=== PATIENT | male | born 1965 | race Caucasian/White ===

== ENCOUNTER 2018-07-05 23:18 | Emergency (ER) | payer BC ==
[~2018-07-05] VITALS: Ht 172.7 cm; Wt 90.7 kg
[~2018-07-05 23:18] MED LIST: ASPI-484 PO; ASPI-655 PO; ATOR20TA PO; LANS15CA66 PO; METO-237 PO; Metoprolol Tartrate PO; NICO-449 TP; NITR0.4T26 SL; PRAS10TA4 PO; TICA90TA PO
[2018-07-05 23:30] VITALS: BP 134/85
[2018-07-05] MEDS ORDERED: TORADOL IV STA (23:30)
[2018-07-05] MEDS ORDERED: ZOFRAN IV STA (23:30)
[2018-07-05] MEDS ORDERED: NS 1000ML 1,000 ML STA (23:30)
--- NOTE | 2018-07-05 23:35 | ER.PDOC ---
General Chief Complaint: Flank Pain Stated Complaint: L SIDE & ABD PAIN Time seen by MD: 23:32 Source: patient Exam Limitations: no limitations History of Present Illness Initial Comments 52 year old white male with acute onset of severe left flank pain that radiates to the groin with nausea. Afebrile. Timing/Duration: 1 hour Severity/Quality: severe Radiation: groin Associated Symptoms: nausea/vomiting Exacerbated by: nothing Allergies: Coded Allergies: No Known Allergies (Unverified , 12/10/17) Home Meds Active Scripts Metoprolol Succinate (METOPROLOL SUCCINATE) 50 Mg Tab.er.24h, 1 TAB PO DAILY, # 90 TAB 1 Refill Prov:LIANNE ORTEGA MD 12/12/17 Ticagrelor (BRILINTA) 90 Mg Tablet, 90 MG PO BID for PCI, #180 TABLET 2 Refills Prov:AGUSTINA CALL TOW BAR DRIVER 02/21/17 Atorvastatin 20MG (LIPITOR 20MG) 20 Mg Tablet, 40 MG PO HS, #30 TABLET Prov:MARILYN ORTIZ MD 03/17/15 Reported Medications Aspirin (ASPIR 81) 81 Mg Tablet.dr, 1 TAB PO DAILY, #30 TAB 5 Refills 12/10/17 Vital Signs First Vital Signs Date Time Temp Pulse Resp B/P (MAP) Pulse Ox O2 Delivery O2 Flow Rate FiO2 07/05/18 23:27 98.9 100 22 95 Room Air 98.9 07/05/18 23:30 134/85 (101) Last Vital Signs Date Time Temp Pulse Resp B/P (MAP) Pulse Ox O2 Delivery O2 Flow Rate FiO2 07/05/18 23:30 98.9 100 22 134/85 (101) 95 Room Air 98.9 Past Medical History Medical History: coronary artery disease Surgical History: cardiac cath Social History Smoking: less than 1 pack/day Alcohol Use: none Drug Use: none Constitutional: no symptoms reported EENTM: no symptoms reported Respiratory: no symptoms reported Cardiovascular: no symptoms reported Gastrointestinal: see HPI Genitourinary: see HPI Musculoskeletal: no symptoms reported Skin: no symptoms reported Psychiatric/Neurological: no symptoms reported Endocrine: no symptoms reported Hematologic/Lymphatic: no symptoms reported Physical Exam General Appearance: No Apparent Distress, WD/WN HEENT: PERRL/EOMI, Normal ENT Inspection, TMs Normal, Pharynx Normal Neck: Non-Tender, Full Range of Motion, Supple, Normal Inspection Respiratory: chest non-tender, lungs clear, normal breath sounds, no respiratory distress, no accessory muscle use Cardiovascular: Normal Peripheral Pulses, Regular Rate, Rhythm, No Edema, No Gallop, No JVD, No Murmur Gastrointestinal: Normal Bowel Sounds, Non Tender, Soft Pelvic: Normal External Exam, Normal Adnexa, No Cerv. Motion Tender, No Masses Back: Normal Inspection, No CVA Tenderness, No Vertebral Tenderness Extremities: Normal Range of Motion, Non-Tender, Normal Inspection, No Pedal Edema, No Calf Tenderness, Normal Capillary Refill, Pelvis Stable Neurologic/Psychiatric: brand representative II-XII NML as Tested, No Motor/Sensory Deficits, Alert, Normal Mood/Affect, Oriented x 3 Skin: Normal Color, Warm/Dry Lymphatic: No Adenopathy Progress Progress Pain free on recheck Course Sepsis Screening Results: Posi: POSITIVE SEPSIS RISK Sepsis Qualifier/Stage: NO DEFINITE RISK Duration or Total Time Spent w: 15 Vitals & review Data Vital Sign - Last 24 Hours 07/05/18 07/05/18 07/05/18 23:27 23:27 23:30 Temp 98.9 98.9 98.9 98.9 98.9 98.9 Pulse 100 100 100 Resp 22 22 22 B/P (MAP) 134/85 (101) Pulse Ox 95 95 O2 Delivery Room Air Room Air Sepsis Infection Criteria Pres: None LEVEL 1 SEPSIS INFECTION CRITE: None/Not assessed LEVEL 2-SIRS (LIST ALL THAT AP: None/Not assessed Cardiovascular Evidence: Not Assessed or None Hematologic Evidence: None/Not assessed Hepatic Evidence: None/Not assessed Metabolic Evidence: None/Not assessed Neurological Evidence: None/Not assessed Respiratory Evidence: None/Not assessed Renal Evidence: None/Not assessed O2 Sat by Pulse Oximetry: 95 Departure Time of Disposition: 00:47 Disposition: 01 HOME, SELF-CARE Impression: Primary Impression: Ureteral stone Condition: Stable Referrals: LIANNE ORTEGA MD (PCP) PRIMARY CARE PROVIDER Comments Follow up PCP RTER prn Tylenol #3 Flomax Maintain po intake Duration or Time Spent with Pa: 60 UDEREK Yung MD Jul 05, 2018 23:35
[2018-07-05] MEDS ORDERED: TORADOL ONE (23:37)
[2018-07-05] MEDS ORDERED: NS 1000ML 1,000 ML ONE (23:37)
[2018-07-05] MEDS ORDERED: ZOFRAN ONE (23:37)
[2018-07-05 23:42] LABS: BASOPHIL % 0.3 % (0.0-0.2); EOSINOPHIL # 0.2 10^3/uL (0.0-0.2); EOSINOPHIL % 1.9 % (0.0-5.0); HEMOGLOBIN 15.7 g/dL (13.9-16.3); LYMPHOCYTES # 2.1 10^3/uL (1.0-4.8); LYMPHOCYTES % 20.9 % (24.0-44.0); MEAN CELL HGB 28.1 pg (26-34); MEAN CELL HGB CONCENTRATION 33.4 g/dL (33-37); MEAN CORP VOLUME 84.1 fL (78-100); MEAN PLATELET VOLUME 10.7 fL (7.8-11.0); MONOCYTES # 0.7 10^3/uL (0.3-0.8); NEUTROPHIL # 6.9 10^3/uL (1.8-7.7); NEUTROPHILS % 69.7 % (41.0-85.0); RED CELL DISTRIBUTION WIDTH 14.1 % (11.5-14.5); WHITE BLOOD CELL 9.9 10^3/uL (4.5-11.0)
[2018-07-05 23:59] LABS: CALCIUM 9.4 mg/dL (8.4-10.5); CARBON DIOXIDE 24.9 mmol/L (20.0-32)
--- NOTE | 2018-07-06 00:26 | DIREP ---
PROCEDURE:CT ABDOMEN/PELVIS W/O CONTRAST COMPARISON:None. INDICATIONS:kidney stone TECHNIQUE:Axial images were created through the abdomen and pelvis without intravenous contrast material. No oral contrast was administered. Sagittal and coronal reconstructions were performed from source images. FINDINGS: LUNG BASES:Normal. No visible pulmonary or pleural disease. LIVER:Normal. No significant liver lesions are identified. BILIARY:Normal. No visible dilatation or calcification. PANCREAS:Normal. No lesion, fluid collection, ductal dilatation, or atrophy. SPLEEN:Normal. No enlargement or focal lesion. ADRENALS:Normal. No mass or enlargement. URINARY TRACT:2-3 mm left UVJ stone with mild left hydroureteronephrosis. There are tiny, less than 3 mm nonobstructing left renal stones. AORTA/VASCULAR:Normal. No aneurysm. RETROPERITONEUM:Normal. No mass or adenopathy. BOWEL/MESENTERY: Evaluation of the bowel is limited by lack of oral contrast, but there is no apparent obstruction or mass. The appendix is well visualized and normal in diameter without surrounding inflammation. ABDOMINAL WALL:Normal. No mass or hernia. PELVIC ORGANS:Normal. No visible mass. Pelvic organs appropriate for patient age. BONES:Normal for age. No bony lesion or acute fracture. OTHER:Negative. CONCLUSION: 1. 2-3 mm left UVJ stone with mild left hydroureteronephrosis. There also tiny nonobstructing left renal stones Dictated by: Rory Orourke Jr. on 07/06/2018 at 00:23 AM
[2018-07-06 01:01] VITALS: BP 132/86
[2018-07-06 01:09] VITALS: BP 132/86
== END 2018-07-06 01:06 | disposition home or self-care (01) ==
LOC: ER 23:18
DX: N20.1 Calculus of ureter (principal); F17.210 Nicotine dependence, cigarettes, uncomplicated; I25.10 Atherosclerotic heart disease of native coronary artery without angina pectoris; Z79.82 Long term (current) use of aspirin; Z79.899 Other long term (current) drug therapy
CPT/HCPCS: 36415; 74176; 80053; 85025; 85610; 85730; 96361; 96374; 96375; 99285; J1885; J2405; J7030